=== PATIENT | male | born 1985 | race Caucasian/White ===

== ENCOUNTER 2025-05-20 15:00 | Emergency (ER) | payer OTHER, SELFPAY ==
[2025-05-20 15:00] VITALS: BP 171/109; PULSE 90; RESP 18; TEMP 36.8; O2SAT 96
--- NOTE | 2025-05-20 15:10 | EKG_ITS ---
[facility] Test Date: 2025-05-20 Pat Name: LALY ODELL Department: Room: - Gender: Male Elementary Assistant Teacher: : 1985 Requested By: Jagdish Kay Order Number: [id number] Reading MD: Jagdish Kay Measurements Intervals [place] Rate: 79 P: 32 DC: 156 QRS: 35 QRSD: 106 T: 18 QT: 350 QTc: 403 Interpretive Statements SINUS RHYTHM No previous ECG available for comparison /store/S0/[id number]/ecg/[id number].pdf
--- NOTE | 2025-05-20 15:12 | EDNOTE_ITS ---
ED General RME/HPI General Chief complaint: General Adult/Misc Complain Stated complaint: HTN Time Seen by Provider: 05/20/25 15:07 Arrival date/time: 05/20/25 15:00 39-year-old male patient came in for evaluation regarding elevated blood pressure. Patient been complaining of headache, neck pain, and was noted to have elevated blood pressure above 180 systolic while in the dentist trying to have his teeth filled. Patient is headache is described as dull ache, severity moderate. Patient also complained of dizziness. Patient denies any chest pain. Patient told me that he stopped taking blood pressure medication more than a year ago after he lost a lot of weight. Used to take losartan before. Patient is ambulatory. Related Data Previous Rx's ?Medication ?Instructions ?Recorded lisinopril 10 mg tablet 10 mg PO QDAY #30 tabs 05/20 Allergies Allergy/AdvReac Type Severity Reaction Status Date / Time baclofen Allergy Unknown PARALYSIS Unverified 05/20/25 15:12 tramadol Allergy Unknown PARALYSIS Unverified 05/20/25 15:12 Review of Systems Review of Systems Narrative Review of Systems: Review of system reviewed and within normal limits except mentioned in HPI ED Exam Narrative Physical exam: VITAL SIGNS: Reviewed. GENERAL APPEARANCE: Alert and interactive, follows commands, no acute distress, HEAD AND FACE: Non-traumatic. ENT: PERRL, pink conjunctivitis, eyelid no trauma, Mucous membrane moist. NECK: Supple, nontender, no nuchal rigidity. CHEST: No tenderness, no crepitus, no paradoxical movement, no retractions. LUNGS: Clear, well ventilated, symmetric, no rales, no wheezing, no ronchi, no stridor, good breath sounds bilaterally. HEART: Regular rate, regular rhythm, no murmur, no gallops. ABDOMEN: Soft, positive bowel sounds, nondistended, no guarding, nontender, no rebound, no masses, RECTAL: Deferred. GENITAL: Deferred. NEUROLOGICAL: Gross motor function intact sensory function intact, Appropriate for age. MUSCULOSKELETAL: low back nontender, full range of motion. EXTREMITIES: Nontender, full range of motion. SKIN: Color pink, dry, no rash, no lacerations, no abrasions, no contusions. LYMPHATICS: Deferred. Course Quality Measures none Orders Category Date Time Status EKG (ED ONLY) *Do not use* NOW Care 05/20/25 15:10 Completed EKG (ED Only) Stat Exams 05/20/25 15:10 Draft B-Type Natriuretic Peptide Stat Lab 05/20/25 15:51 Completed CBC Stat Lab 05/20/25 15:51 Completed Comprehensive Metabolic Panel Stat Lab 05/20/25 15:51 Completed Partial Thromboplastin Time Stat Lab 05/20/25 15:51 Completed Troponin I Stat Lab 05/20/25 15:51 Completed Urinalysis, C/S if Indicated Stat Lab 05/20/25 17:05 Completed Acetaminophen Tab [Tylenol ES Tab] Med 05/20/25 15:10 Discontinued 1,000 mg PO X1 ONE cloNIDine HCL [Catapres] Med 05/20/25 15:10 Discontinued 0.1 mg PO X1 ONE Vital Signs Vital signs: Vital Signs Temperature 98.3 F 05/20/25 15:00 Pulse Rate 90 05/20/25 15:00 Respiratory Rate 18 05/20/25 15:00 Blood Pressure 171/109 H 05/20/25 15:00 Pulse Oximetry (%) 96 05/20/25 15:00 Oxygen Delivery Method Room Air 05/20/25 15:00 Discharge Plan Plan Patient Disposition: HOME (Self Care) Discharge Disposition comment: Stable Prescriptions/Referrals Prescriptions/Med Rec: New lisinopril 10 mg tablet 10 mg PO QDAY Qty: 30 0RF Referrals: Shree Guardado MD [Primary Care Provider, Family Practice] - In 1 week Problem List Clinical Impression: Hypertension Patient/Caregiver Discharge Instructions Discharge Activity: activity as tolerated Education Materials: Controlling High Blood Pressure Additional Instructions: Thank you for the opportunity for serving you today. You are stable for discharged . 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 Patient been complaining of headache, neck pain, and was noted to have elevated blood pressure above 180 systolic while in the dentist trying to have his teeth filled. Patient is headache is described as dull ache, severity moderate. Patient also complained of dizziness. Patient denies any chest pain. Patient told me that he stopped taking blood pressure medication more than a year ago after he lost a lot of weight. Used to take losartan before. Patient is ambulatory. Patient's workup today all came back unremarkable. Patient EKG showed normal sinus rhythm, no ST segment elevation depression noted. Patient's blood pressure was noted to be 146/81, heart rate of 94 after patient received clonidine and Tylenol. Stable discharge Medication Administration(s) Medication Administration History Discontinued Medications Acetaminophen (Acetaminophen 500 Mg Tablet) 1,000 mg PO X1 ONE Stop: 05/20/25 15:11 Last Admin: 05/20/25 15:20 Dose: 1,000 mg Documented By: DAVY Clonidine (Clonidine Hcl 0.1 Mg Tablet) 0.1 mg PO X1 ONE Stop: 05/20/25 15:11 Last Admin: 05/20/25 15:20 Dose: 0.1 mg Documented By: LF Diagnosis Differential Diagnosis ED Complaint MDM: Anxiety, hypertension, headache Diagnoses ruled out and/or further discussions: Hypertension
[2025-05-20 15:20] VITALS: BP 179/99; PULSE 85
[2025-05-20] MEDS: ACETAMINOPHEN 500 MG TABLET 1000 MG PO (15:20)
[2025-05-20 16:11] VITALS: BP 154/89; PULSE 98; RESP 18; O2SAT 98
[2025-05-20 16:13] LABS: Basophils # (Auto) 0.1 Thou/mm3 (0.0-0.2); Basophils % (Auto) 1 % (0-2.5); Eosinophils # (Auto) 0.2 Thou/mm3 (0.0-0.5); Eosinophils % (Auto) 2 % (0-10); Hematocrit 46.1 % (41.0-53.0); Hemoglobin 15.7 g/dL (13.5-16.0); Immature Granulocytes Auto 0.02 Thou/mm3 (0.00-0.00); Lymphocytes # (Auto) 3.4 Thou/mm3 (1.0-4.8); Lymphocytes % (Auto) 36 % (10-50); Mean Corpuscular HGB Conc 34.1 g/dl (31.0-37.0); Mean Corpuscular Hemoglobin 29.2 pg (25.0-35.0); Mean Corpuscular Volume 86 fL (80-100); Monocytes # (Auto) 1.0 Thou/mm3 (0.0-0.8); Monocytes % (Auto) 11 % (0-12); Neutrophils # (Auto) 4.7 Thou/mm3 (1.8-7.7); Neutrophils % (Auto) 50 % (37-80); Nucleated Red Blood Cell # 0.00 Thou/mm3 (0.00-0.00); Nucleated Red Blood Cell % 0 /100 WBC (0); Platelet Count 191 Thou/mm3 (140-440); RDW Standard Deviation 38.3 fL (35.1-43.9); Red Blood Count 5.38 Miln/mm3 (4.50-5.90); White Blood Count 9.5 Thou/mm3 (3.8-10.6)
[2025-05-20 16:21] LABS: Alanine Aminotransferase 46 U/L (10-49); Albumin, Serum 4.7 gm/dL (3.5-5.0); Albumin/Globulin Ratio 2.9 (1.2-2.2); Alkaline Phosphatase 66 U/L (46-116); Anion Gap 10 (7-16); Aspartate Amino Transferase 38 U/L (0-34); BUN/Creatinine Ratio 8 Ratio (12-20); Bilirubin,Total 0.5 mg/dL (0.3-1.2); Blood Urea Nitrogen 9 mg/dL (9-23); Calcium 9.4 mg/dL (8.3-10.6); Calcium (Corrected) 9.4 mg/dL (8.5-10.1); Carbon Dioxide 28.3 mMol/L (20.0-31.0); Chloride 103 mMol/L (98-107); Creatinine (Component) 1.2 mg/dL (0.6-1.3); Globulin 1.6 gm/dL (2.3-3.5); Glucose 105 mg/dL (74-106); Osmolality,Calculated 279 (275-295); Potassium 4.0 mMol/L (3.4-5.1); Sodium 141 mMol/L (136-145); Total Protein 6.3 gm/dL (5.7-8.2); Troponin I < 0.020 ng/mL (0.0-0.045); eGFR > 60 See Note
[2025-05-20 16:25] LABS: Partial Thromboplastin Time 28.0 Seconds (22.0-36.0)
[2025-05-20 16:39] LABS: B-Type Natriuretic Peptide < 20 pg/mL (0-100)
[2025-05-20 16:54] VITALS: BP 146/81; PULSE 94; RESP 18; O2SAT 96
[2025-05-20 17:10] LABS: Collection Type, Urine Clean Catch; Squamous Epithelial Cell,Urine 0 /hpf (0-5)
[2025-05-20 17:13] LABS: Bilirubin,Urine Negative (Negative); Blood,Urine Negative (Negative); Clarity,Urine Clear (Clear/Hazy); Color,Urine Lt-Yellow (Lt Yel-Yel); Culture Indicated,Urine Not Indicated; Glucose, Urine Negative (Negative); Ketones,Urine Negative (Negative); Leukocyte Esterase,Urine Negative (Negative); Nitrite,Urine Negative (Negative); PH,Urine 6.5 (5.0-7.0); Protein,Urine Negative (Neg - Trace); RBC,Urine 2 /hpf (0-3); Specific Gravity,Urine 1.014 (1.001-1.035); Urobilinogen,Urine Negative mg/dL (0.0-1.0); WBC,Urine < 1 /hpf (0-5)
== END 2025-05-20 18:40 | disposition home or self-care (01) ==
PROVIDERS: Nurse Practitioner Family; Emergency Provider Family Medicine; PCP Family Medicine
DX: I10 Essential (primary) hypertension (principal)
CPT/HCPCS: 36415; 80053; 81001; 83880; 84484; 85025; 85730; 93005; 99283; A9270